=== PATIENT | female | born 1950 | race Caucasian/White ===

== ENCOUNTER 2016-10-08 10:54 | Day surgery (SDC) | payer MEDICARE, OTHER ==
[~2016-10-08] VITALS: Ht 162.6 cm; Wt 62.7 kg
[~2016-10-08 10:54] MED LIST: CALCIUM 600600 M2 PO; EFFEXOR 75M75 MG/TAB PO; MULTIPLE VITAMI1 TA5 PO; ZOCOR 40MG40 MG PO
[2016-10-08] MEDS ORDERED: ASPIRIN 81M81 MG/TA2 PO (11:22)
[2016-10-08 14:30] VITALS: BP 117/87; PULSE 49; TEMP 97.6
[2016-10-08 14:45] VITALS: BP 122/55; PULSE 51
[2016-10-08 15:00] VITALS: BP 107/76; PULSE 56
[2016-10-08 15:15] VITALS: BP 119/56; PULSE 60
[2016-10-08 15:45] VITALS: BP 121/58; PULSE 55
[2016-10-08 16:13] VITALS: BP 128/61; PULSE 67; TEMP 97
== END 2016-10-08 16:05 | disposition home or self-care (01) ==
LOC: SDCO 10:54
DX: C67.5 Malignant neoplasm of bladder neck (principal); Z85.51 Personal history of malignant neoplasm of bladder; E78.5 Hyperlipidemia, unspecified; M85.80 Other specified disorders of bone density and structure, unspecified site; F17.210 Nicotine dependence, cigarettes, uncomplicated; Z80.0 Family history of malignant neoplasm of digestive organs
CPT/HCPCS: C1726; C1769; J0690; J2405; J2704; J3010; Q9967